=== PATIENT | male | born 1950 | race Caucasian/White ===

== ENCOUNTER → 2019-06-01 13:36 | Outpatient (BNVA) | payer MEDICARE, MEDICAID, SELFPAY | PROVIDERS: Family Provider Family Medicine; PCP Family Medicine; Visit Provider Family Medicine | DX: D69.9 Hemorrhagic condition, unspecified (principal) | CPT/HCPCS: 36416; 85610 ==

== ENCOUNTER 2019-09-26 06:00 | Outpatient (RCR) | payer MEDICARE, MEDICAID, SELFPAY | END 2019-10-21 23:59 | disposition home or self-care (01) | LOC: SST 06:00 | PROVIDERS: PCP Family Medicine; Referring Provider Family Medicine; Visit Provider Family Medicine | DX: I69.30 Unspecified sequelae of cerebral infarction (principal); R47.01 Aphasia | CPT/HCPCS: 92607; 92608 ==

== ENCOUNTER → 2019-11-21 11:59 | Outpatient (BNVA) | payer MEDICARE, MEDICAID, SELFPAY | PROVIDERS: PCP Family Medicine; Visit Provider Nurse Practitioner Family | DX: L03.90 Cellulitis, unspecified (principal) | CPT/HCPCS: 80053; 85025 ==

== ENCOUNTER → 2021-07-08 13:47 | Outpatient (BNVA) | payer MEDICARE, MEDICAID, SELFPAY | PROVIDERS: PCP Family Medicine; Visit Provider Internal Medicine | DX: Z20.822 Contact with and (suspected) exposure to COVID-19 (principal); Z86.010 Personal history of colon polyps | CPT/HCPCS: 87635 ==

== ENCOUNTER → 2021-08-05 14:45 | Outpatient (BNVA) | payer MEDICARE, MEDICAID, SELFPAY | PROVIDERS: PCP Family Medicine; Visit Provider Internal Medicine | DX: J06.9 Acute upper respiratory infection, unspecified (principal); Z20.822 Contact with and (suspected) exposure to COVID-19 | CPT/HCPCS: 87635 ==

== ENCOUNTER 2021-08-10 06:24 | Day surgery (SDC) | payer MEDICARE, MEDICAID, SELFPAY ==
[2021-08-06 12:28] VITALS: BMI 26.4
[2021-08-10 06:50] VITALS: BP 168/106; PULSE 77; RESP 18; TEMP 36.6; O2SAT 100
[2021-08-10] MEDS: sodium chloride 0.9% 1,000 ML 30 ML IV (06:55)
--- NOTE | 2021-08-10 06:58 | ANES.PREANE2 ---
Pre-Anesthetic Assessment Height/Weight: Height 1.7 m Weight 76.657 kg Temp Pulse Resp BP Pulse Ox 97.8 F 77 18 168/106 100 08/10/21 06:50 08/10/21 06:50 08/10/21 06:50 08/10/21 06:50 08/10/21 06:50 Preop Diagnosis: polyps Operation Date: 08/10/21 07:45 Proposed Procedures p Colonoscopy 19565/[id number](Not Applicable) - Charles Pike MD Familial anesthetic complications: none Was Beta John taken within 24 hours: N/A Was Clonidine taken within 24 hours: N/A Last intake: Intake Last Liquid Date 08/09/21 Last Liquid Time 23:45 Last Solid Date 08/09/21 Last Solid Time 10:30 Social Tobacco and No alcohol Exam alert, oriented x 3, clear to auscultation bilaterally and regular rate & rhythm Airway Mallampati: Class III Dentition: false Comments: Comments: poor dentiton Pulmonary Chronic Obstructive Pulmonary Disease CV/HEM Hypertension None reported Hepatic None reported GI None reported Metabolic None reported Musc/skel None reported Neuropsych Cerebrovascular Accident Anesthetic Plan ASA status: 2 Anesthesia: MAC Risk of > 500 ml blood loss (7ml/kg in children): No Medications/Allergies Home Medications Medication Instructions Recorded Confirmed Last Taken Type nifedipine 30 mg tablet,extended 30 mg PO DAILY #90 tab 01/28/21 08/10/21 08/08/21 Rx release enalapril maleate 10 mg tablet 10 mg PO BID #180 tab 03/05/21 08/10/21 08/09/21 Rx Allergies Allergy/AdvReac Type Severity Reaction Status Date / Time No Known Allergies Allergy Verified 08/10/21 06:44 Current Medications Generic Name Dose Route Start Last Admin Trade Name Freq PRN Reason Stop Dose Admin Sodium Chloride 1,000 mls @ 30 mls/hr 08/10/21 06:45 08/10/21 06:55 Sodium Chloride 0.9% IV 08/11/21 06:44 30 mls/hr .Q24H CYNDIE Administration PFSH Anesthesia Social History Smoking and tobacco status: current every day smoker cigarettes Alcohol intake: current Alcohol intake frequency: 0-2 Drinks per Day Alcohol type: beer Data Anesthesia Cardiac Studies: No Data to Display
--- NOTE | 2021-08-10 07:53 | W.PM.OPSFHP ---
Same Day Surgery H&P Indication for Procedure/HPI DATE OF PROCEDURE: August 10, 2021 CHIEF COMPLAINT/INDICATIONFOR SURGICAL PROCEDURE: History of colon polyps PREOP DIAGNOSIS: polyps PLANNED PROCEDURE: Operation Date: 08/10/21 07:45 Proposed Procedures p Colonoscopy 03943/[id number](Not Applicable) - Charles Pike MD Medications/Allergies* Allergies/Adverse Reactions Allergy/AdvReac Type Severity Reaction Status Date / Time No Known Allergies Allergy Verified 08/10/21 06:44 Current Medications: Generic Name Dose Route Start Last Admin Trade Name Freq PRN Reason Stop Dose Admin Sodium Chloride 1,000 mls @ 30 mls/hr 08/10/21 06:45 08/10/21 06:55 Sodium Chloride 0.9% IV 08/11/21 06:44 30 mls/hr .Q24H CYNDIE Administration Pertinent History/Comorbid Conditions* Social History Smoking and tobacco status: current every day smoker cigarettes Alcohol intake: current Alcohol intake frequency: 0-2 Drinks per Day Alcohol type: beer Pertinent Exam Findings alert, oriented x 3, clear to auscultation bilaterally, regular rate & rhythm, operative site marked and procedure specific exam findings Recommendations Surgery/Procedure today Coding Level of Care Code 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
[2021-08-10 08:40] VITALS: BP 112/80; PULSE 88; RESP 18; TEMP 36.5; O2SAT 98
[2021-08-10 08:54] VITALS: BP 122/80; PULSE 78; RESP 18; TEMP 36.3; O2SAT 100
--- NOTE | 2021-08-10 14:51 | ANE.PACU2 ---
Inpatient post-anesthesia follow up: Airway intact: Yes Vital signs: Temperature 97.4 F Pulse Rate 78 Respiratory Rate 18 Blood Pressure 122/80 Pulse Oximetry 100 Oxygen Delivery Me thod Room Air Oxygen Flow Rate Fraction of Inspir ed Oxygen Hydration adequate: Yes Nausea and vomiting: No Pain level: 1 Mental status: Baseline
== END 2021-08-10 09:15 | disposition home or self-care (01) ==
PROVIDERS: PCP Family Medicine; Visit Provider Internal Medicine
PROC: 0DJD8ZZ Inspection of Lower Intestinal Tract, Via Natural or Artificial Opening Endoscopic (ICD-10-PCS; CPT 45378; principal; 2021-08-10 07:45)
DX: Z12.11 Encounter for screening for malignant neoplasm of colon (principal); K57.30 Diverticulosis of large intestine without perforation or abscess without bleeding; F17.210 Nicotine dependence, cigarettes, uncomplicated; J44.9 Chronic obstructive pulmonary disease, unspecified; I10 Essential (primary) hypertension; Z86.73 Personal history of transient ischemic attack (TIA), and cerebral infarction without residual deficits
CPT/HCPCS: 45378; J2704; J7030

== ENCOUNTER 2022-03-30 06:00 | Outpatient (RCR) | payer MEDICARE, MEDICAID, SELFPAY | END 2022-04-21 23:59 | disposition home or self-care (01) | LOC: GOT 06:00 | PROVIDERS: PCP Family Medicine; Visit Provider Nurse Practitioner Family | DX: I69.351 Hemiplegia and hemiparesis following cerebral infarction affecting right dominant side (principal) | CPT/HCPCS: 97166 ==

== ENCOUNTER → 2023-01-17 09:42 | Outpatient (BNVA) | payer MEDICARE, MEDICAID, SELFPAY | PROVIDERS: PCP Family Medicine; Visit Provider Surgery | DX: K40.30 Unilateral inguinal hernia, with obstruction, without gangrene, not specified as recurrent (principal); I69.322 Dysarthria following cerebral infarction | CPT/HCPCS: 99204 ==